=== PATIENT | female | born 1990 | race African-American/Black ===

== ENCOUNTER 2019-06-22 19:23 | Emergency (ER) | payer OTHER ==
[2019-06-22 19:35] VITALS: BP 123/90; PULSE 71; TEMP 98.3; BMI 23.8
[2019-06-22] MEDS ORDERED: AMOX TR/POT CLAV 875MG/125MG TABLETS (FP) PO ONE (22:31)
[2019-06-22] MEDS ORDERED: AMOX TR/POT CLAV 875MG/125MG TABLETS (FP) ONE (22:32)
--- NOTE | 2019-06-23 04:52 | PDOC ---
Documentation entered by Jennifer Jang SCRIBE, acting as scribe for Kisha Toscano MD. Kisha Toscano MD: This documentation has been prepared by the Suhail chapa Aiswarya, SCRIBE, under my direction and personally reviewed by me in its entirety. I confirm that the documentation accurately reflects all work, treatment, procedures, and medical decision making performed by me. History of Present Illness - General Chief Complaint: Pain, Acute Stated Complaint: RIGHT FACIAL PAIN Time Seen by Provider: 06/22/19 19:25 History Source: Patient Exam Limitations: No Limitations - History of Present Illness Initial Comments: 06/22/19 20:37 The patient is a 29 year old female, with no significant PMH, who presents to the emergency department with a headache that began 4 days ago. The patient states constant pain radiates to the right side of the head and nose, mild relief with Tylenol and Aleve. She also reports 2 episodes of drainage from right nostril (described as dilute blood).The patient denies chest pain, shortness of breath and dizziness. Denies trauma, falls, and vision changes. Denies fever, chills, nausea, vomit, diarrhea and constipation. Denies dysuria, frequency, urgency and hematuria. Allergies: NKDA Past surgical history: None reported Social history: None reported PCP: None reported Past History - Past Medical History Allergies/Adverse Reactions: Allergies Allergy/AdvReac Type Severity Reaction Status Date / Time No Known Allergies Allergy Verified 06/22/19 19:25 Home Medications: Ambulatory Orders Amox-Tr/K Cl [Augmentin - 875Mg Tablet] 1 tab PO BID #20 tablet 06/22/19 Review of Systems - Review of Systems Able to Perform ROS?: Yes Comments:: 06/22/19 20:37 GENERAL/CONSTITUTIONAL: No fever or chills. No weakness. HEAD, EYES, EARS, NOSE AND THROAT:+nose pain. No change in vision. No ear pain or discharge. No sore throat. CARDIOVASCULAR: No chest pain or shortness of breath. RESPIRATORY: No cough, wheezing, or hemoptysis. GASTROINTESTINAL: No nausea, vomiting, diarrhea or constipation. GENITOURINARY: No dysuria, frequency, or change in urination. MUSCULOSKELETAL: No joint or muscle swelling or pain. No neck or back pain. SKIN: No rash NEUROLOGIC: +headache. No vertigo, loss of consciousness, or change in strength /sensation. ENDOCRINE: No increased thirst. No abnormal weight change. HEMATOLOGIC/LYMPHATIC: No anemia, easy bleeding, or history of blood clots. ALLERGIC/IMMUNOLOGIC: No hives or skin allergy. *Physical Exam - Vital Signs Last Vital Signs Temp Pulse Resp BP Pulse Ox 98.3 F 71 16 123/90 100 06/22/19 19:24 06/22/19 19:24 06/22/19 19:24 06/22/19 19:24 06/22/19 19:24 - Physical Exam Comments: 06/22/19 20:57 ADULT EXAM GENERAL: Awake, alert, and fully oriented, in no acute distress HEAD: No signs of trauma EYES: PERRLA, EOMI, sclera anicteric, conjunctiva clear ENT: +Tenderness on palpation to the right zygoma. Tenderness to the right lower parietal orbital area and right nasal sided bridge. No edema or erythema. Serosanguinous right nostril. No masses to the left nostril. Serosanguinous of the oropharynx without masses or other acute abnormality. NECK: Normal ROM, supple, no lymphadenopathy, JVD, or masses LUNGS: Breath sounds equal, clear to auscultation bilaterally. No wheezes, and no crackles HEART: Regular rate and rhythm, normal S1 and S2, no murmurs, rubs or gallops ABDOMEN: Soft, nontender, normoactive bowel sounds. No guarding, no rebound. No masses EXTREMITIES:Normal range of motion, no edema. No clubbing or cyanosis. No cords , erythema, or tenderness NEUROLOGICAL: Cranial nerves II through XII grossly intact. Normal speech, normal gait SKIN: Warm, Dry, normal turgor, no rashes or lesions noted. ED Treatment Course - ADDITIONAL ORDERS Additional order review: Laboratory Results 06/22/19 20:18 Urine HCG, Qual Negative - RADIOLOGY Radiology Studies Ordered: Category Date Time Status SOFT TISSUE NECK CT W/O CONTR [CT] Stat CT Scan 06/22/19 20:34 Completed Medical Decision Making - Medical Decision Making As noted above, this otherwise healthy 29-year-old woman presents with several day history of right-sided frontal headache and serosanguineous drainage from right nostril. No previous history of the symptoms; no sinus or epistaxis episodes in the past. Exam as noted. Differential diagnosis of right-sided frontal headache with serosanguineous drainage from nostril includes acute sinusitis versus mass. PGU negative Noncontrast head CT performed: Pansinusitis involving right frontal/right ethmoid/right mastoid sinuses. No other significant abnormality seen. Results discussed with the patient. Patient started on Augmentin 875/125 twice a day with first dose given here in the ER. Patient should follow-up with ENT surgeon: Dr. Flores referral information given. Discharge - Discharge Information Problems reviewed: Yes Clinical Impression/Diagnosis: Acute sinusitis Qualifiers: Sinusitis location: pansinusitis Recurrence: non-recurrent Qualified Code(s): J01.40 - Acute pansinusitis, unspecified Condition: Stable Disposition: HOME - Additional Discharge Information Prescriptions: Amox-Tr/K Cl [Augmentin - 875Mg Tablet] 1 tab PO BID #20 tablet - Follow up/Referral Referrals: Power Flores MD [Staff Physician] - 1 week - Patient Discharge Instructions Patient Printed Discharge Instructions: Sinusitis Additional Instructions: Augmentin 875/125 twice a day for 10 daystake with a meal No work for the remainder of tonight or tomorrow Tylenol/Advil/Aleve as needed for pain Can use Claritin-D/Zyrtec-D or other antihistamine/decongestant medication Rest; drink plenty of fluids Return to ER if you have severe pain/high fever Follow-up with within the next 7 to 10 days - Post Discharge Activity Work/Back to School Note: Back to Work
== END 2019-06-22 22:40 | disposition home or self-care (01) ==
LOC: FER 19:23
DX: J01.40 Acute pansinusitis, unspecified (principal)
CPT/HCPCS: 70490-TC; 84703; 99282-25